=== PATIENT | female | born 1970 | race African-American/Black ===

== ENCOUNTER 2016-05-25 16:09 | Emergency (ER) | payer MEDICARE, MEDICAID ==
[~2016-05-25] VITALS: Ht 162.6 cm; Wt 114.0 kg
[~2016-05-25 16:09] MED LIST: [UNRECOGNIZED DRUG - REMARK]
[2016-05-25 17:02] VITALS: BP 151/89
[2016-05-25] MEDS ORDERED: IBUPROFEN 600MG TABLET PO ONE (17:45)
== END 2016-05-25 19:28 | disposition home or self-care (01) ==
LOC: ER 18:33
DX: S92.415A Nondisplaced fracture of proximal phalanx of left great toe, initial encounter for closed fracture (principal); E11.9 Type 2 diabetes mellitus without complications; Z88.0 Allergy status to penicillin; I10 Essential (primary) hypertension; W01.0XXA Fall on same level from slipping, tripping and stumbling without subsequent striking against object, initial encounter; Y93.89 Activity, other specified; Y99.9 Unspecified external cause status; Y92.89 Other specified places as the place of occurrence of the external cause
CPT/HCPCS: 73660; 99284